=== PATIENT | female | born 1995 | race Caucasian/White ===

== ENCOUNTER 2017-11-23 11:17 | Emergency (ER) | payer SELFPAY ==
[~2017-11-23 11:17] MED LIST: CLINDAMYCIN PO
[2017-11-23 11:49] VITALS: BP 152/95; PULSE 85; RESP 18; TEMP 98.6; O2SAT 100
[2017-11-23] MEDS ORDERED: AUGM875T3 PO (12:40)
--- NOTE | 2017-11-23 12:41 | PD ---
HPI Chief Complaint: Cold / Flu Symptoms Time Seen by Provider: 12:15 Travel History International Travel<30 days: No Contact w/Intl Traveler<30days: No Traveled to known affect area: No History of Present Illness HPI This is a 22-year-old female here with sore throat and fever 2 days. She has a history of tonsillar abscess on the left side at the location of her pain. She was seen in urgent care clinic yesterday and was diagnosed with URI and instructed to take Advil. This morning on inspection of her throat she noticed an area which appeared to be pus draining from the left tonsil. She denies difficulty swallowing. No change in voice. Symptom severity is moderate. No aggravating or alleviating factors. PFSH Past Medical History Autoimmune Disease: No Anxiety: No Depression: No Cardiovascular Problems: No Diminished Hearing: No Genitourinary: Yes Musculoskeletal: No Neurologic: No Psychiatric: No Respiratory: No Immunizations Current: Yes ?: Not LMP: 11/10/17 : 0 Past Surgical History Abdominal Surgery: No Cardiac Surgery: No Ear Surgery: No Endocrine Surgery: No Eye Surgery: No Genitourinary Surgery: No Gynecologic Surgery: No Neurologic Surgery: No Oral Surgery: No Thoracic Surgery: No Tympanostomy Tube: Yes Social History Alcohol Use: No Tobacco Use: No Substance Use: No Allergies-Medications (Allergen,Severity, Reaction): Coded Allergies: No Known Allergies (Unverified Adverse Reaction, Unknown, 11/23/17) Reported Meds & Prescriptions Reported Meds & Active Scripts Active Review of Systems Except as stated in HPI: all other systems reviewed are Neg General / Constitutional: Positive: Fever Eyes: No: Visual changes HENT: Positive: Sore Throat Cardiovascular: No: Chest Pain or Discomfort Respiratory: No: Shortness of Breath Gastrointestinal: No: Abdominal Pain Genitourinary: No: Dysuria Physical Exam Narrative GENERAL: Alert well-appearing 22-year-old female SKIN: Warm and dry. No rash HEAD: Normocephalic. EYES: No injection or drainage. Ear/nose/throat: Pharyngeal erythema with tonsillar hypertrophy left greater than right. Left tonsil with exudate. Uvula is midline. Airway is patent. Normal phonation NECK: Supple. Mild cervical lymphadenopathy. CARDIOVASCULAR: Regular rate and rhythm RESPIRATORY: Breath sounds equal bilaterally. No accessory muscle use. Data Data Last Documented VS Vital Signs Date Time Temp Pulse Resp B/P (MAP) Pulse Ox O2 Delivery O2 Flow Rate FiO2 11/23/17 11:49 98.6 85 18 152/95 (114) 100 MDM Medical Decision Making Medical Screen Exam Complete: Yes Emergency Medical Condition: Yes Differential Diagnosis Tonsillitis, tonsillar abscess, mononucleosis Narrative Course 22-year-old female here with tonsillitis. Airway is patent. She is nontoxic appearing. She'll be discharged home with Augmentin and instructed to follow- up with her doctor. Return precautions were discussed. Patient verbalizes understanding and agrees to plan Diagnosis Primary Impression: Tonsillitis Referrals: [facility] Primary Care Physician Additional Instructions: Antibiotics as directed. Saltwater gargles as directed. Tylenol and ibuprofen for pain. Stay well hydrated. Scripts Amoxicillin-Clavulanate (Augmentin) 875-125 Mg Tab 1 TAB PO BID for Infection, #20 TAB 0 Refills Prov: Elvira Jose 11/23/17 Disposition: 01 DISCHARGE HOME Condition: Stable Elvira Jose Nov 23, 2017 12:41
== END 2017-11-23 12:52 | disposition home or self-care (01) ==
LOC: NEPK 11:17
DX: J03.90 Acute tonsillitis, unspecified (principal)
CPT/HCPCS: 99283